=== PATIENT | female | born 1990 | race African-American/Black ===

== ENCOUNTER 2020-11-20 19:53 | Outpatient (CLI) | payer OTHER ==
[2020-11-20 21:19] LABS: Bacteria,Urine 2+ /HPF (Negative); Bilirubin,Urine NEG (Negative); Blood,Urine NEG (Negative); Color,Urine Yellow (Yellow); Mucus,Urine FEW /HPF; Protein,Urine <15 mg/dL mg/dL (Negative); Urobilinogen,Urine < 2.0 mg/dL (<2.0)
[2020-11-20 22:43] LABS: Hematocrit 33.9 % (30.3-42.9); Hemoglobin 11.7 gm/dl (10.1-14.3); Mean Corpuscular HGB Conc 35 % (30-34); Mean Corpuscular Volume 93 fl (79-97); Platelet Count 214 K/mm3 (140-440); Red Blood Count 3.65 M/mm3 (3.65-5.03); Red Cell Distribution Width 14.3 % (13.2-15.2)
[2020-11-20 23:02] LABS: Alanine Aminotransferase 13 units/L (7-56); Uric Acid 3.8 mg/dL (3.5-7.6)
[2020-11-20 23:27] VITALS: BP 134/87
--- NOTE | 2020-11-20 23:30 | Ultrasound Report ---
LIMITED OBSTETRIC ULTRASOUND WITH BIOPHYSICAL PROFILE HISTORY: Elevated blood-pressure. Clinical gestational age 39 week 4 day COMPARISON: None. TECHNIQUE: Limited OB ultrasound performed with biophysical profile. FINDINGS: Gestation: [place] intrauterine fetus. Placenta: anterior location and free of the internal cervical os. Presentation: Cephalic Amniotic Fluid Index: 10.3 cm ANATOMY: Detailed anatomic survey was not requested. Heart rate measures 154 beats per minute. BIOMETRY: Biparietal diameter: 9.5 cm corresponding to38 week 5 day Head circumference: 34.3 cmcorresponding to39 weeks 4 day Abdominal circumference: 34.2 cmcorresponding to38 week 1 day Femur length: 7.7 cmcorresponding to39 week 2 day Estimated weight: 3554 +/- 526 grams, which is at the 51 percentile. Estimated gestational age based on today's measurements: 39 weeks 0 days BIOPHYSICAL PROFILE: Movement: 2 Tone: 2 Breathin Amniotic Fluid: 2 Total: 8 out of 8 IMPRESSION 1. Single living intrauterine at approximately 39 weeks 0 days with no significant abnormal ity. Detailed anatomic survey was not performed. 2. Biophysical Profile 8 out of 8. 3. Normal amniotic fluid index. Signer Name: Noa Lindsey MD Signed: 11/20/2020 11:26 PM Workstation Name: [id number]
== END 2020-11-21 | disposition home or self-care (01) ==
LOC: TRG 19:53 → APU 20:03 → TRG 11-21
PROVIDERS: ATTEND Obstetrics & Gynecology
DX: O13.3 Gestational [pregnancy-induced] hypertension without significant proteinuria, third trimester (principal); Z3A.39 39 weeks gestation of pregnancy
CPT/HCPCS: 36415; 59025; 76816; 76819; 81001; 82565; 83615; 84450; 84460; 84550; 85027; 87086

== ENCOUNTER 2020-11-27 06:29 | Inpatient (IN) | payer OTHER ==
[2020-11-27] MEDS ORDERED: LACTATED RINGERS 2,000 ML ONE (07:32)
[2020-11-27] MEDS ORDERED: NalbUPHINE 10 MG/1 ML INJ IV PRN (08:31)
[2020-11-27] MEDS ORDERED: TERBUTALINE 1 MG/1 ML INJ SUB-Q PRN (08:31)
[2020-11-27] MEDS ORDERED: ePHEDrine SULFATE 50 MG/1 ML INJ IV PRN ×2 (08:31→10:38)
[2020-11-27] MEDS ORDERED: BUTORPHANOL 2 MG/1 ML INJ IV PRN ×2 (08:31)
[2020-11-27] MEDS ORDERED: fentaNYL 100 MCG/2 ML INJ IV PRN (08:31)
[2020-11-27] MEDS ORDERED: ACETAMINOPHEN 325 MG TAB PO PRN (08:31)
[2020-11-27] MEDS ORDERED: MINERAL OIL 30 ML ORAL LIQD PO PRN (08:31)
[2020-11-27] MEDS ORDERED: NALOXONE 0.4 MG/1 ML INJ IV PRN (08:31)
[2020-11-27] MEDS: LACTATED RINGERS 1,000 ML IV SCH ×2 (08:54→09:49)
[2020-11-27] MEDS ORDERED: MAGNESIUM SULFATE 4 GM/100 ML BAG IV ONE (08:54)
--- NOTE | 2020-11-27 08:57 | History and Physical Report ---
History of Present Illness Date of examination: 11/27/20 Chief complaint: painful contractions since 0300 this morning History of present illness: EDC Confirmation: 11/23/2020 Past History : 1 Term Births: 0 Premature Births: 0 Living Children: 0 Para: 0 Mult. Births: 0 Prev : 0 Aborta: 0 Elect. Ab: 0 Spont. Ab: 0 Ectopics: 0 Past Medical History: Reviewed history from 01/25/2020 and no changes required: Hypothyroidism Past Surgical History: Reviewed history from 01/25/2020 and no changes required: negative Past Medical History Anesthesia Complications: negative Anemia: negative Autoimmune Disorder: negative Bleeding Disorder: negative Blood Transfusions: negative Breast Disease: negative Diabetes: negative Heart Disease: negative Hypertension: negative Hepatitis/Liver Disease: negative Kidney Disease/UTI: negative Neurologic/Epilepsy/Migraines: negative Phlebitis/Varicosities: negative Psychiatric: negative Pulmonary Disease/Asthma: negative Thyroid Disease: positive, Hypothroidism Hospitalizations: negative Surgery (Non-skidder lever operator): negative Abnormal PAP: negative ERWIN Exposure: negative Infertility: negative Uterine Anomaly: negative Uterine Surgery (not C/S): negative Other Gynecologic Problems: negative Social Hx: Patient is Smoking History: Patient has never smoked. no e/t/d Infection History Hx of STD: none HIV Risk Eval: no Hepatitis B Risk Eval: low risk Personal hx. of genital herpes: no Partner hx. of genital herpes: no Rash, Viral, or Febrile illness since last LMP? no Varicella/Chicken Pox Status: Previous Disease TB Risk: no Genetic History Congenital Heart Defect: Mom: no Dad: no Brayden Disease: Mom: no Dad: no Thalassemia Mom: no Dad: no Neural Tube Defect Mom: no Dad: no Down's Syndrome Mom: no Dad: no Toi-Sachs Mom: no Dad: no Sickle Cell Disease/Trait Mom: no Dad: no Hemophilia Mom: no Dad: no Muscular Dystrophy Mom: no Dad: no Cystic Fibrosis Mom: no Dad: no Wainwright Chorea Mom: no Dad: no Mental Retardation Mom: no Dad: no Fragile X Mom: no Dad: no Other Genetic/Chromosomal Disorder Mom: no Dad: no Child w/other defect Mom: no Dad: no Enviromental Exposures Xray Exposure: no Medication, drug, or alcohol use since LMP: no Chemical/Other Exposure: no Exposure to Cat Liter: no Hx of Parvovirus (Fifth Disease): no Occupational Exposure to Children: none Active Medications (reviewed today): ZOFRAN ODT 8 MG ORAL TABLET DISINTEGRATING (ONDANSETRON) 1 po q12hrs prn LEVOTHYROXINE 222 MCG () Current Allergies (reviewed today): No known allergies Past History Past Medical History: thyroid disease Past Surgical History: 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 denies: smoking, alcohol abuse, prescription drug abuse, IV drug use - Obstetrical History Expected Date of Delivery: 11/23/20 Actual Gestation: 40 Week(s) 4 Day(s) : 1 Para: 0 Hx # Term Pregnancies: 0 Number of Pregnancies: 0 Spontaneous Abortions: 0 Induced : 0 Number of Living Children: 0 Medications and Allergies Allergies Allergy/AdvReac Type Severity Reaction Status Date / Time No Known Allergies Allergy Unverified 11/20/20 20:54 Home Medications Medication Instructions Recorded Confirmed Last Taken Type Levothyroxine 112 mcg PO QDAY 11/20/20 11/20/20 11/20/20 10:00 History Vitamin 1 tab PO QDAY 11/20/20 11/20/20 11/20/20 10:00 History Active Meds: Active Medications Acetaminophen (Acetaminophen 325 Mg Tab) 650 mg PO Q4H PRN PRN Reason: Pain, Mild (1-3) Butorphanol Tartrate (Butorphanol 2 Mg/1 Ml Inj) 1 mg IV Q2H PRN PRN Reason: Pain, Moderate(4-6) LABOR PAIN Butorphanol Tartrate (Butorphanol 2 Mg/1 Ml Inj) 2 mg IV Q2H PRN PRN Reason: Pain , Severe (7-10) Ephedrine Sulfate (Ephedrine Sulfate 50 Mg/1 Ml Inj) 10 mg IV Q2M PRN PRN Reason: Hypotension Fentanyl (Fentanyl 100 Mcg/2 Ml Inj) 100 mcg IV Q2H PRN PRN Reason: Pain,Severe (7-10) LABOR PAIN Oxytocin/Sodium Chloride (Pitocin/Ns 30 Unit/500ml) 30 units in 500 mls @ 2 mls/hr IV TITR COLLEEN; Protocol Lactated Ringer's (Lactated Ringers) 1,000 mls @ 125 mls/hr IV DIRECT COLLEEN Last Admin: 11/27/20 08:54 Dose: 999 mls/hr Documented by: Oxytocin/Sodium Chloride (Pitocin/Ns 30 Unit/500ml) 30 units in 500 mls @ 40 mls/hr IV TITR COLLEEN; Protocol Lidocaine (Lidocaine (2%) 20 Mg/1 Ml Vial 20 Ml Mdv) 20 ml INFILTRATI ONCE ONE Stop: 11/27/20 09:01 Mineral Oil (Mineral Oil 30 Ml Oral Liqd) 30 ml PO QHS PRN PRN Reason: Constipation Nalbuphine HCl (Nalbuphine 10 Mg/1 Ml Inj) 10 mg IV Q2H PRN PRN Reason: Pain, Moderate (4-6) Naloxone HCl (Naloxone 0.4 Mg/1 Ml Inj) 0.1 mg IV Q2MIN PRN PRN Reason: Res Rate </= 8 or 02 SAT < 92% Ondansetron HCl (Ondansetron 4 Mg/2 Ml Inj) 4 mg IV Q8H PRN PRN Reason: Nausea And Vomiting Terbutaline Sulfate (Terbutaline 1 Mg/1 Ml Inj) 0.25 mg SUB-Q ONCE PRN PRN Reason: Hyperstimulation/Hypertonicity Review of Systems All systems: negative - Vital Signs Vital signs: Vital Signs Pulse BP Pulse Ox 75 137/89 97 11/27/20 06:57 11/27/20 06:57 11/27/20 06:57 Temp Pulse Resp BP Pulse Ox 98.6 F 73 20 168/101 97 11/27/20 07:28 11/27/20 08:52 11/27/20 07:28 11/27/20 08:52 11/27/20 08:50 - Physical Exam Breasts: Cardiovascular: Regular rate, Normal S1, Normal S2 Abdomen: Positive: normal appearance, soft, normal bowel sounds. Negative: distention, tenderness Genitourinary (Female): Positive: normal external genitalia, normal perenium Vulva: both: normal Vagina: Positive: normal moisture Uterus: Positive: normal size, normal contour Adnexa: both: normal Anus/Rectum: Positive: normal perianal skin, heme negative. Negative: rectal mass, hemorrhoids Extremities: Deep Tendon Reflex Grade: Normal +2 - Obstetrical FHR: category 2 Uterine Contraction Monitor Mode: External Uterine Contraction Frequency (min): 8-9 Uterine Contraction Duration: 90 Uterine Contraction Pattern: Regular Uterine Tone Measurement Phase: Contraction Uterine Contraction Intensity: Mild Results Result Diagrams: 11/27/20 08:15 All other labs normal. Assessment and Plan 30 y/o admitted for labor, b/p noted to be elevated in severe range upon admission. Pre-e labs NL except for proteinuria. pt noted to have b/p 130/94 @ 39 weeks but then normal after. pt denies HART, visual changes or epigastric pain. dx pre-e, discussed w/ patient and . Epidural PRN, labor to be augmented with pitocin as needed. Dr. Cardenas updated. - Patient Problems (1) Pre-eclampsia Current Visit: Yes Status: Acute Qualifiers: Trimester: third trimester Qualified Code(s): O14.93 - Unspecified pre- eclampsia, third trimester Plan to address problem: Magnesium sulfate for neuro protection to continue 24hr post delivery mag levels q6hrs close monitoring of b/p and for s/s of worsening pre-e (2) 40 weeks gestation of Current Visit: Yes Status: Acute (3) Active labor at term Current Visit: Yes Status: Acute (4) Hypothyroidism Current Visit: Yes Status: Acute Qualifiers: Hypothyroidism type: acquired Qualified Code(s): E03.9 - Hypothyroidism, unspecified Plan to address problem: Continue synthroid
[2020-11-27] MEDS ORDERED: OXYTOCIN DRIP 30 UNITS/500 ML BAG IV SCH ×2 (09:00)
[2020-11-27] MEDS ORDERED: MAGNESIUM SULFATE 40GM/1000ML 40 GM/1,000 ML BAG IV SCH (09:00)
[2020-11-27] MEDS ORDERED: LIDOCAINE (2%) 20 MG/1 ML VIAL 20 ML MDV INFILTRATI ONE (09:00)
[2020-11-27] MEDS: ONDANSETRON 4 MG/2 ML INJ IV PRN ×2 (09:01→17:36)
[2020-11-27 09:27] LABS: Hematocrit 36.9 % (30.3-42.9); Hemoglobin 12.2 gm/dl (10.1-14.3); Mean Corpuscular HGB Conc 33 % (30-34); Mean Corpuscular Volume 93 fl (79-97); Platelet Count 256 K/mm3 (140-440); Red Blood Count 3.97 M/mm3 (3.65-5.03); Red Cell Distribution Width 14.6 % (13.2-15.2)
[2020-11-27 10:05] LABS: Bilirubin,Urine NEG (Negative); Blood,Urine LG (Negative); Color,Urine Amber (Yellow); Mucus,Urine 3+ /HPF
[2020-11-27] MEDS ORDERED: NALOXONE 2 MG/2 ML INJ IV PRN (10:38)
--- NOTE | 2020-11-27 10:38 | Anesthesia Consultation ---
Anesthesia Consult and Med Hx Date of service: 11/27/20 - Airway Anesthetic Teeth Evaluation: Good ROM Head & Neck: Adequate Mental/Hyoid Distance: Adequate Mallampati Class: Class II Intubation Access Assessment: Probably Good - Pulmonary Exam CTA: Yes - Cardiac Exam Cardiac Exam: RRR - Pre-Operative Health Status ASA Pre-Surgery Classification: ASA3 Proposed Anesthetic Plan: Epidural - Pulmonary Hx Asthma: No COPD: No Hx Pneumonia: No - Cardiovascular System Hx Hypertension: Yes (Pre-e) - Central Nervous System Hx Seizures: No Hx Psychiatric Problems: No - Endocrine Hx Renal Disease: No Hx End Stage Renal Disease: No Hx Hypothyroidism: Yes (medications since Mar) Hx Hyperthyroidism: No - Hematic Hx Anemia: No Hx Sickle Cell Disease: No - Other Systems Hx Alcohol Use: No
--- NOTE | 2020-11-27 10:51 | Progress Note ---
Labor Epidural - Labor Epidural Start Time: 10:42 Stop Time: 10:50 Performed by:: JESUS MELGAR Procedure: Patient is requesting epidural for labor pain. H&P, and labs reviewed. Procedure explained, questions answered, consent obtained. Patient in sitting position with blood pressure cuff and pulse ox on and working. Timeout performed immediately before start of procedure. Sterile chlorahexadine 0.5% prep/drape. 3 mL 1% lidocaine skin wheal at L[3]-L[4]. 18-gauge Tuohy epidural needle advanced to [id number] with saline at [7] cm. Epidural catheter advanced to [12] cm, negative aspiration for blood and csf, negative test dose 3 ml 1.5% lidocaine with epinephrine. Epidural dexmedetomidine [30] mcg administered. Sterile steri-strips and tegaderm applied, followed by tape reinforcement. Patient tolerated procedure well. Jesus SAENZ
[2020-11-27] MEDS ORDERED: fentaNYL-BUPIV 2 MCG/ML-0.125% 200 MCG/100 ML BAG EPIDURAL SCH (11:00)
--- NOTE | 2020-11-27 11:13 | Progress Note ---
Assessment and Plan pt comfortable s/p epidural, SVE with good change. AROM - clear fluid. will augment with pitocin. efw by palpation approx 7.5lbs, pelvis feels adequate for size. - Patient Problems (1) Pre-eclampsia Current Visit: Yes Status: Acute Qualifiers: Trimester: third trimester Qualified Code(s): O14.93 - Unspecified pre- eclampsia, third trimester (2) 40 weeks gestation of Current Visit: Yes Status: Acute (3) Active labor at term Current Visit: Yes Status: Acute (4) Hypothyroidism Current Visit: Yes Status: Acute Qualifiers: Hypothyroidism type: acquired Qualified Code(s): E03.9 - Hypothyroidism, unspecified Subjective - Subjective Date of service: 11/27/20 Principal diagnosis: IUP @ 40+4, Laboring, pre-e Interval history: EDC Confirmation: 11/23/2020 Past History : 1 Term Births: 0 Premature Births: 0 Living Children: 0 Para: 0 Mult. Births: 0 Prev : 0 Aborta: 0 Elect. Ab: 0 Spont. Ab: 0 Ectopics: 0 Past Medical History: Reviewed history from 01/25/2020 and no changes required: Hypothyroidism Past Surgical History: Reviewed history from 01/25/2020 and no changes required: negative Past Medical History Anesthesia Complications: negative Anemia: negative Autoimmune Disorder: negative Bleeding Disorder: negative Blood Transfusions: negative Breast Disease: negative Diabetes: negative Heart Disease: negative Hypertension: negative Hepatitis/Liver Disease: negative Kidney Disease/UTI: negative Neurologic/Epilepsy/Migraines: negative Phlebitis/Varicosities: negative Psychiatric: negative Pulmonary Disease/Asthma: negative Thyroid Disease: positive, Hypothroidism Hospitalizations: negative Surgery (Non-gear roller): negative Abnormal PAP: negative ERWIN Exposure: negative Infertility: negative Uterine Anomaly: negative Uterine Surgery (not C/S): negative Other Gynecologic Problems: negative Social Hx: Patient is Smoking History: Patient has never smoked. no e/t/d Infection History Hx of STD: none HIV Risk Eval: no Hepatitis B Risk Eval: low risk Personal hx. of genital herpes: no Partner hx. of genital herpes: no Rash, Viral, or Febrile illness since last LMP? no Varicella/Chicken Pox Status: Previous Disease TB Risk: no Genetic History Congenital Heart Defect: Mom: no Dad: no Brayden Disease: Mom: no Dad: no Thalassemia Mom: no Dad: no Neural Tube Defect Mom: no Dad: no Down's Syndrome Mom: no Dad: no Toi-Sachs Mom: no Dad: no Sickle Cell Disease/Trait Mom: no Dad: no Hemophilia Mom: no Dad: no Muscular Dystrophy Mom: no Dad: no Cystic Fibrosis Mom: no Dad: no Diogenes Chorea Mom: no Dad: no Mental Retardation Mom: no Dad: no Fragile X Mom: no Dad: no Other Genetic/Chromosomal Disorder Mom: no Dad: no Child w/other defect Mom: no Dad: no Enviromental Exposures Xray Exposure: no Medication, drug, or alcohol use since LMP: no Chemical/Other Exposure: no Exposure to Cat Liter: no Hx of Parvovirus (Fifth Disease): no Occupational Exposure to Children: none Active Medications (reviewed today): ZOFRAN ODT 8 MG ORAL TABLET DISINTEGRATING (ONDANSETRON) 1 po q12hrs prn LEVOTHYROXINE 222 MCG () Current Allergies (reviewed today): No known allergies Patient reports: no new complaints (comfortable w/ epidural) Objective - Vital Signs Vital Signs: Vital Signs - 12hr 11/27/20 11/27/20 11/27/20 06:57 07:02 07:07 Temperature Pulse Rate 75 70 71 Respiratory Rate Blood Pressure 137/89 O2 Sat by Pulse 97 97 97 Oximetry 11/27/20 11/27/20 11/27/20 07:12 07:20 07:25 Temperature Pulse Rate 79 75 75 Respiratory Rate Blood Pressure O2 Sat by Pulse 98 98 97 Oximetry 11/27/20 11/27/20 11/27/20 07:28 07:56 07:59 Temperature 98.6 F Pulse Rate 79 78 Respiratory 20 Rate Blood Pressure 187/106 O2 Sat by Pulse 95 Oximetry 11/27/20 11/27/20 11/27/20 08:01 08:02 08:06 Temperature Pulse Rate 78 81 74 Respiratory Rate Blood Pressure O2 Sat by Pulse 96 94 96 Oximetry 11/27/20 11/27/20 11/27/20 08:10 08:11 08:15 Temperature 99.8 F H Pulse Rate 75 71 Respiratory Rate Blood Pressure 151/95 O2 Sat by Pulse 96 Oximetry 11/27/20 11/27/20 11/27/20 08:16 08:21 08:23 Temperature Pulse Rate 76 71 75 Respiratory Rate Blood Pressure O2 Sat by Pulse 96 95 94 Oximetry 11/27/20 11/27/20 11/27/20 08:26 08:31 08:36 Temperature Pulse Rate 78 74 70 Respiratory Rate Blood Pressure 161/95 O2 Sat by Pulse 98 95 97 Oximetry 11/27/20 11/27/20 11/27/20 08:39 08:50 08:52 Temperature Pulse Rate 76 76 73 Respiratory Rate Blood Pressure 168/101 O2 Sat by Pulse 94 97 Oximetry 11/27/20 11/27/20 11/27/20 08:55 09:00 09:01 Temperature Pulse Rate 73 86 86 Respiratory Rate Blood Pressure 187/100 O2 Sat by Pulse 96 97 Oximetry 11/27/20 11/27/20 11/27/20 09:05 09:10 09:11 Temperature Pulse Rate 68 68 66 Respiratory Rate Blood Pressure O2 Sat by Pulse 97 95 94 Oximetry 11/27/20 11/27/20 11/27/20 09:15 09:17 09:20 Temperature Pulse Rate 69 71 71 Respiratory Rate Blood Pressure 152/87 O2 Sat by Pulse 95 93 96 Oximetry 11/27/20 11/27/20 11/27/20 09:25 09:29 09:30 Temperature Pulse Rate 87 69 68 Respiratory Rate Blood Pressure 145/92 O2 Sat by Pulse 99 96 Oximetry 11/27/20 11/27/20 11/27/20 09:34 09:35 09:40 Temperature Pulse Rate 64 89 66 Respiratory Rate Blood Pressure O2 Sat by Pulse 94 95 97 Oximetry 11/27/20 11/27/20 11/27/20 09:45 09:46 09:50 Temperature Pulse Rate 87 78 68 Respiratory Rate Blood Pressure 184/109 O2 Sat by Pulse 99 97 Oximetry 11/27/20 11/27/20 11/27/20 09:52 09:55 09:57 Temperature Pulse Rate 66 70 71 Respiratory Rate Blood Pressure 137/79 133/81 O2 Sat by Pulse 93 95 Oximetry 11/27/20 11/27/20 11/27/20 09:58 10:00 10:04 Temperature Pulse Rate 76 74 67 Respiratory Rate Blood Pressure 141/83 O2 Sat by Pulse 92 96 Oximetry 11/27/20 11/27/20 11/27/20 10:05 10:07 10:09 Temperature Pulse Rate 73 81 73 Respiratory Rate Blood Pressure 153/84 149/82 O2 Sat by Pulse 97 94 Oximetry 11/27/20 11/27/20 11/27/20 10:10 10:12 10:15 Temperature Pulse Rate 72 74 90 Respiratory Rate Blood Pressure 141/81 O2 Sat by Pulse 94 95 Oximetry 11/27/20 11/27/20 11/27/20 10:19 10:20 10:22 Temperature Pulse Rate 72 76 78 Respiratory Rate Blood Pressure 144/90 143/88 O2 Sat by Pulse 95 Oximetry 11/27/20 11/27/20 11/27/20 10:25 10:30 10:35 Temperature Pulse Rate 83 81 79 Respiratory Rate Blood Pressure O2 Sat by Pulse 98 96 95 Oximetry 11/27/20 11/27/20 11/27/20 10:40 10:44 10:45 Temperature Pulse Rate 84 82 77 Respiratory Rate Blood Pressure 140/86 O2 Sat by Pulse 97 98 Oximetry 11/27/20 11/27/20 11/27/20 10:46 10:48 10:50 Temperature Pulse Rate 75 76 75 Respiratory Rate Blood Pressure 136/85 148/92 137/83 O2 Sat by Pulse 98 Oximetry 11/27/20 11/27/20 11/27/20 10:52 10:54 10:55 Temperature Pulse Rate 90 82 94 H Respiratory Rate Blood Pressure 127/79 131/79 O2 Sat by Pulse 97 Oximetry 11/27/20 11/27/20 11/27/20 10:56 10:58 11:00 Temperature Pulse Rate 86 83 78 Respiratory Rate Blood Pressure 137/79 128/75 123/74 O2 Sat by Pulse 97 Oximetry 11/27/20 11/27/20 11/27/20 11:02 11:04 11:05 Temperature Pulse Rate 83 80 81 Respiratory Rate Blood Pressure 117/69 115/68 O2 Sat by Pulse 97 Oximetry 11/27/20 11/27/20 11:06 11:08 Temperature Pulse Rate 81 82 Respiratory Rate Blood Pressure 120/65 120/72 O2 Sat by Pulse Oximetry - Exam Cardiovascular: Regular rate Lungs: Normal air movement Abdomen: Present: normal appearance, soft Vulva: both: normal Uterus: Present: normal, fundal height above umbilicus FHR: category 1 Uterine Contraction Monitor Mode: External Cervical Dilatation: 7.5 (AROM - clear) Cervical Effacement Percentage: 80 station: -1 Uterine Contraction Frequency (min): 5-7 Uterine Contraction Duration: 90 Uterine Contraction Pattern: Regular Uterine Tone Measurement Phase: Contraction Uterine Contraction Intensity: Moderate Extremities: normal Deep Tendon Reflex Grade: Normal +2 - Labs Labs: Abnormal Labs 11/27/20 11/27/20 11/27/20 08:15 08:15 09:13 WBC 11.9 H Magnesium 1.60 L Urine WBC (Auto) 26.0 H U Epithel Cells (Auto) 41.0 H Laboratory Results - last 24 hr 11/27/20 11/27/20 11/27/20 08:15 08:15 08:15 WBC 11.9 H RBC 3.97 Hgb 12.2 Hct 36.9 MCV 93 MCH 31 MCHC 33 RDW 14.6 Plt Count 256 Magnesium Urine Color Urine Turbidity Urine pH Ur Specific Pilot Urine Protein Urine Glucose (UA) Urine Ketones Urine Blood Urine Nitrite Urine Bilirubin Urine Urobilinogen Ur Leukocyte Esterase Urine WBC (Auto) Urine RBC (Auto) U Epithel Cells (Auto) Urine Mucus Syphilis IgG Antibody Nonreactive Blood Type B NEGATIVE Antibody Screen Negative 11/27/20 11/27/20 08:15 09:13 WBC RBC Hgb Hct MCV MCH MCHC RDW Plt Count Magnesium 1.60 L Urine Color Afbi Urine Turbidity Cloudy Urine pH 6.0 Ur Specific Pilot 1.026 Urine Protein 100 mg/dl Urine Glucose (UA) Neg Urine Ketones Neg Urine Blood Lg Urine Nitrite Neg Urine Bilirubin Neg Urine Urobilinogen 2.0 Ur Leukocyte Esterase Sm Urine WBC (Auto) 26.0 H Urine RBC (Auto) 2.0 U Epithel Cells (Auto) 41.0 H Urine Mucus 3+ Syphilis IgG Antibody Blood Type Antibody Screen
[2020-11-27 12:42] LABS: Hematocrit 36.3 % (30.3-42.9); Hemoglobin 12.2 gm/dl (10.1-14.3); Mean Corpuscular HGB Conc 34 % (30-34); Mean Corpuscular Volume 94 fl (79-97); Platelet Count 229 K/mm3 (140-440); Red Blood Count 3.88 M/mm3 (3.65-5.03); Red Cell Distribution Width 14.3 % (13.2-15.2)
[2020-11-27 13:04] LABS: Alanine Aminotransferase 13 units/L (7-56); Uric Acid 3.8 mg/dL (3.5-7.6)
--- NOTE | 2020-11-27 15:42 | Procedure Note ---
OB Delivery Note - Delivery Date of Delivery: 11/27/20 ( female) [employer] Farmer: SADAF GUERRERO Estimated blood loss: 300cc - Vaginal Delivery presentation: vertex Delivery position: OA (RAJENDRA) Intrapartum events: meconium, preeclampsia Delivery induction: none Delivery augmentation: rupture of membranes, pitocin Delivery monitor: external FHT, external uterine Route of delivery: Delivery placenta: spontaneous Delivery cord: 3 umbilical vessels Episiotomy: none Delivery laceration: 2nd degree Delivery repair: vicryl Anesthesia: epidural Delivery comments: Female infant born over intact perineum, with strong cry placed on maternal abdomen for skin to skin. 3 vessel cord clamped and cut. cord blood collected. placenta delivered intact and complete. 2nd degree laceration repaired in the usual fashion. EBL 300. apgars 8/9, wt 7#14oz. mother and baby in stable condition. all counts correct. Will continue magnesium x24hrs on labor and delivery. - Infant A at 1 minute: 8 at 5 minutes: 9 Infant Gender: Female (7#14)
[2020-11-27] MEDS ORDERED: hydrALAZINE 20 MG/1 ML INJ IV ONE (17:40)
--- NOTE | 2020-11-28 06:54 | Progress Note ---
Assessment and Plan - Patient Problems (1) (normal spontaneous vaginal delivery) Onset Date: ~11/27/20 Current Visit: Yes Status: Acute Plan to address problem: Pt in good spirits. VSS FF @ umb Lochia small Perineum intact Hendrix to BSB draining clear yellow urine. H&H pending. Pt w/o complaints of anemia. Stable s/p vag delivery; on 24hr MGSO4 for PreE P: continue MGSO4 until 1500 then will transfer to [facility] All questions addressed (2) Pre-eclampsia Onset Date: ~11/28/20 Current Visit: Yes Status: Acute Qualifiers: Trimester: third trimester Qualified Code(s): O14.93 - Unspecified pre- eclampsia, third trimester Plan to address problem: VSS BPs 108-106/70. Pt denies HART, blurred vision, chest pain. Will continue MGSO4 X 24hr post delivery 1500 today then transfer to [facility] Subjective - Subjective Date of service: 11/28/20 (pt aware she will go to [facility] after 1500 when MGSO4 is d/c) Principal diagnosis: Day # 1 s/p ; PreE on MGSO4 Patient reports: appetite normal, pain well controlled [place]: doing well Objective - Vital Signs Latest vital signs: Vital Signs Temp Pulse Resp BP BP Pulse Ox 11/28/20 06:46 82 97 11/28/20 06:41 74 95 11/28/20 06:39 75 107/57 11/28/20 06:37 47 L 94 11/28/20 06:36 73 95 11/28/20 06:31 74 96 11/28/20 06:26 76 95 11/28/20 06:21 79 97 11/28/20 06:16 79 97 11/28/20 06:11 84 96 11/28/20 06:09 75 96/51 94 11/28/20 06:06 78 96 11/28/20 06:01 77 97 11/28/20 05:56 75 96 11/28/20 05:51 81 97 11/28/20 05:46 85 97 11/28/20 05:41 76 96 11/28/20 05:39 78 107/60 92 11/28/20 05:36 74 95 11/28/20 05:31 86 95 11/28/20 05:26 82 95 11/28/20 05:21 76 95 11/28/20 05:16 85 96 11/28/20 05:11 84 98 11/28/20 05:09 80 108/62 92 11/28/20 05:06 79 97 11/28/20 05:01 82 97 11/28/20 04:56 81 95 11/28/20 04:51 78 96 11/28/20 04:46 82 96 11/28/20 04:41 83 97 11/28/20 04:39 82 106/59 93 11/28/20 04:36 86 96 11/28/20 04:31 77 97 11/28/20 04:26 82 97 11/28/20 04:21 74 94 11/28/20 04:16 75 97 11/28/20 04:11 76 93 11/28/20 04:09 76 107/56 11/28/20 04:06 80 94 11/28/20 04:01 78 94 11/28/20 04:00 99.1 F 76 18 107/56 94 11/28/20 03:56 81 97 11/28/20 03:51 85 96 11/28/20 03:46 85 96 11/28/20 03:41 92 H 96 11/28/20 03:39 81 111/60 93 11/28/20 03:36 80 96 11/28/20 03:31 82 97 11/28/20 03:26 85 96 11/28/20 03:21 80 95 11/28/20 03:16 81 95 11/28/20 03:11 82 95 11/28/20 03:09 82 111/67 92 11/28/20 03:06 82 96 11/28/20 03:01 87 95 11/28/20 02:56 67 97 11/28/20 02:51 87 96 11/28/20 02:46 89 96 11/28/20 02:41 85 96 11/28/20 02:39 82 117/69 93 11/28/20 02:36 87 97 11/28/20 02:31 88 97 11/28/20 02:26 87 96 11/28/20 02:21 81 95 11/28/20 02:16 83 95 11/28/20 02:11 85 96 11/28/20 02:09 81 109/63 91 11/28/20 02:06 81 95 0521 02:01 79 95 11/28/20 01:56 84 96 11/28/20 01:51 80 96 11/28/20 01:46 78 97 11/28/20 01:41 80 95 11/28/20 01:39 80 104/60 93 11/28/20 01:36 83 97 11/28/20 01:31 77 95 11/28/20 01:26 77 94 11/28/20 01:21 80 94 11/28/20 01:16 77 95 11/28/20 01:14 83 94 11/28/20 01:11 81 95 11/28/20 01:09 74 104/56 11/28/20 01:06 73 94 11/28/20 01:01 70 92 11/28/20 00:56 69 92 11/28/20 00:51 69 92 11/28/20 00:46 69 92 11/28/20 00:41 67 92 11/28/20 00:39 75 105/51 11/28/20 00:36 70 93 11/28/20 00:31 69 93 11/28/20 00:30 97.6 F 75 18 105/51 92 11/28/20 00:26 69 93 11/28/20 00:23 70 94 11/28/20 00:21 76 97 11/28/20 00:16 77 95 11/28/20 00:15 83 94 11/28/20 00:11 78 95 11/28/20 00:10 71 94 11/28/20 00:09 76 105/57 11/28/20 00:06 74 96 11/28/20 00:01 74 95 11/27/20 23:59 71 94 11/27/20 23:56 81 95 11/27/20 23:51 69 95 11/27/20 23:50 81 94 11/27/20 23:46 76 96 11/27/20 23:41 79 97 11/27/20 23:39 78 115/64 11/27/20 23:36 76 94 11/27/20 23:31 75 95 11/27/20 23:26 69 96 05 23:21 72 93 11/27/20 23:16 79 97 11/27/20 23:11 77 96 11/27/20 23:09 75 109/58 05/21 23:08 84 94 11/27/20 23:06 80 96 11/27/20 23:02 77 94 11/27/20 23:01 78 94 11/27/20 22:56 75 94 11/27/20 22:51 85 96 11/27/20 22:50 78 94 11/27/20 22:46 75 94 11/27/20 22:45 74 94 11/27/20 22:41 79 94 11/27/20 22:39 79 115/62 94 11/27/20 22:36 78 94 11/27/20 22:31 74 93 11/27/20 22:26 75 94 11/27/20 22:24 79 93 11/27/20 22:21 75 95 11/27/20 22:19 76 94 11/27/20 22:16 76 97 11/27/20 22:11 76 95 11/27/20 22:09 74 117/64 94 11/27/20 22:06 72 96 11/27/20 22:01 76 95 11/27/20 21:56 81 95 11/27/20 21:55 81 124/70 11/27/20 21:52 82 93 11/27/20 21:51 77 95 11/27/20 21:46 77 95 11/27/20 21:44 78 94 11/27/20 21:41 82 95 11/27/20 21:39 81 124/70 92 11/27/20 21:36 78 96 11/27/20 21:34 79 94 11/27/20 21:31 84 97 11/27/20 21:26 77 95 11/27/20 21:21 79 96 11/27/20 21:18 78 94 11/27/20 21:16 77 96 11/27/20 21:11 84 96 11/27/20 21:09 80 115/65 92 11/27/20 21:06 83 96 11/27/20 21:01 86 97 11/27/20 20:56 81 96 11/27/20 20:53 81 94 11/27/20 20:51 80 96 11/27/20 20:46 86 96 11/27/20 20:40 84 97 11/27/20 20:39 87 117/72 11/27/20 20:36 82 96 11/27/20 20:31 85 97 11/27/20 20:25 85 96 11/27/20 20:23 75 94 11/27/20 20:20 87 96 11/27/20 20:17 78 94 11/27/20 20:15 80 96 11/27/20 20:10 80 97 11/27/20 20:09 80 115/62 11/27/20 20:05 80 96 11/27/20 20:00 97.4 F L 86 18 96 11/27/20 19:55 82 96 11/27/20 19:50 91 H 96 11/27/20 19:45 92 H 95 11/27/20 19:40 95 H 96 11/27/20 19:39 85 127/65 90 11/27/20 19:35 84 95 11/27/20 19:30 90 96 11/27/20 19:25 95 H 96 11/27/20 19:20 88 96 11/27/20 19:19 85 94 11/27/20 19:15 88 96 11/27/20 19:10 87 96 11/27/20 19:09 90 136/70 94 11/27/20 19:05 84 95 11/27/20 19:01 96 H 94 11/27/20 19:00 92 H 96 11/27/20 18:55 90 97 11/27/20 18:50 88 95 11/27/20 18:45 93 H 96 11/27/20 18:42 98.3 F 11/27/20 18:40 92 H 96 11/27/20 18:39 88 133/74 11/27/20 18:35 98 H 97 11/27/20 18:30 86 97 11/27/20 18:25 83 96 11/27/20 18:21 95 H 94 11/27/20 18:20 91 H 96 11/27/20 18:15 90 97 11/27/20 18:10 101 H 98 11/27/20 18:07 90 142/71 11/27/20 18:05 90 97 11/27/20 18:02 90 138/70 11/27/20 18:00 92 H 97 11/27/20 17:57 89 145/75 11/27/20 17:55 90 97 11/27/20 17:52 82 142/79 11/27/20 17:50 81 96 11/27/20 17:47 87 93 11/27/20 17:46 86 164/94 11/27/20 17:45 88 97 11/27/20 17:40 86 96 11/27/20 17:36 98 H 164/94 92 11/27/20 17:35 100 H 96 11/27/20 17:34 72 190/101 11/27/20 17:30 83 96 11/27/20 17:25 75 175/71 95 11/27/20 17:20 79 98 11/27/20 17:15 82 99 11/27/20 17:10 76 97 11/27/20 17:05 79 97 11/27/20 17:02 79 93 11/27/20 17:00 76 97 11/27/20 16:55 79 96 11/27/20 16:50 80 98 11/27/20 16:45 79 97 11/27/20 16:40 77 97 11/27/20 16:35 75 134/80 97 11/27/20 16:30 76 97 11/27/20 16:25 71 98 11/27/20 16:20 84 97 11/27/20 16:15 84 97 11/27/20 16:10 81 97 11/27/20 16:05 84 130/67 97 11/27/20 16:00 81 96 11/27/20 15:55 82 97 11/27/20 15:50 86 123/70 96 11/27/20 15:45 90 96 11/27/20 15:40 97 H 98 11/27/20 15:35 90 135/84 97 11/27/20 15:30 91 H 97 11/27/20 15:25 93 H 97 11/27/20 15:22 95 H 134/83 11/27/20 15:20 89 127/73 96 11/27/20 15:15 94 H 98 11/27/20 15:10 77 97 11/27/20 15:05 80 132/73 96 11/27/20 15:00 83 96 11/27/20 14:55 89 97 11/27/20 14:53 71 134/66 11/27/20 14:52 98 H 93 11/27/20 14:50 95 H 97 11/27/20 14:45 105 H 96 11/27/20 14:40 94 H 97 11/27/20 14:35 79 97 11/27/20 14:30 84 97 11/27/20 14:28 98.1 F 76 16 124/72 96 11/27/20 14:26 83 94 11/27/20 14:25 69 95 11/27/20 14:20 73 96 11/27/20 14:16 75 124/72 11/27/20 14:15 71 96 11/27/20 14:10 74 97 11/27/20 14:05 74 97 11/27/20 14:00 72 96 11/27/20 13:55 72 95 11/27/20 13:50 76 96 11/27/20 13:46 77 121/69 11/27/20 13:45 71 96 11/27/20 13:40 83 96 11/27/20 13:35 76 96 11/27/20 13:30 84 96 11/27/20 13:25 76 97 11/27/20 13:20 73 96 11/27/20 13:17 82 128/77 93 11/27/20 13:15 74 92 11/27/20 13:10 74 93 11/27/20 13:05 75 92 11/27/20 13:00 72 93 11/27/20 12:55 71 94 11/27/20 12:50 73 94 11/27/20 12:46 71 111/66 11/27/20 12:45 75 93 11/27/20 12:40 74 94 11/27/20 12:35 71 94 11/27/20 12:30 73 94 11/27/20 12:25 68 94 11/27/20 12:24 70 93 11/27/20 12:20 82 95 11/27/20 12:18 72 94 11/27/20 12:17 75 117/70 11/27/20 12:15 75 97 11/27/20 12:10 82 94 11/27/20 12:05 74 95 11/27/20 12:00 73 95 11/27/20 11:59 78 94 11/27/20 11:55 81 96 11/27/20 11:54 80 122/73 11/27/20 11:53 76 94 11/27/20 11:50 78 96 11/27/20 11:46 77 93 11/27/20 11:45 81 95 11/27/20 11:40 77 95 11/27/20 11:39 74 94 11/27/20 11:35 75 94 11/27/20 11:34 77 93 11/27/20 11:30 82 94 11/27/20 11:26 79 93 11/27/20 11:25 78 95 11/27/20 11:21 76 94 11/27/20 11:20 80 95 11/27/20 11:16 74 112/62 93 11/27/20 11:15 76 95 11/27/20 11:14 78 110/63 11/27/20 11:12 86 114/63 11/27/20 11:10 79 113/63 96 11/27/20 11:08 82 120/72 11/27/20 11:06 81 120/65 11/27/20 11:05 81 97 11/27/20 11:04 80 115/68 11/27/20 11:02 83 117/69 11/27/20 11:00 78 123/74 97 11/27/20 10:58 83 128/75 11/27/20 10:56 86 137/79 11/27/20 10:55 94 H 97 11/27/20 10:54 82 131/79 11/27/20 10:52 90 127/79 11/27/20 10:50 75 137/83 98 11/27/20 10:48 76 148/92 11/27/20 10:46 75 136/85 11/27/20 10:45 77 98 11/27/20 10:44 82 140/86 11/27/20 10:40 84 97 11/27/20 10:35 79 95 11/27/20 10:30 81 96 11/27/20 10:25 83 98 11/27/20 10:22 78 143/88 11/27/20 10:20 76 95 11/27/20 10:19 72 144/90 11/27/20 10:15 90 95 11/27/20 10:12 74 141/81 11/27/20 10:10 72 94 11/27/20 10:09 73 149/82 11/27/20 10:07 81 153/84 94 11/27/20 10:05 73 97 05/09/21 10:04 67 141/83 0509/21 10:00 74 96 11/27/20 09:58 76 92 05 09:57 71 133/81 05 09:55 70 95 11/27/20 09:52 66 137/79 93 11/27/20 09:50 68 97 11/27/20 09:46 78 184/109 11/27/20 09:45 87 99 11/27/20 09:40 66 97 11/27/20 09:35 89 95 11/27/20 09:34 64 94 11/27/20 09:30 68 96 11/27/20 09:29 69 145/92 11/27/20 09:25 87 99 11/27/20 09:20 71 96 11/27/20 09:17 71 152/87 93 11/27/20 09:15 69 95 11/27/20 09:11 66 94 11/27/20 09:10 68 95 11/27/20 09:05 68 97 11/27/20 09:01 86 187/100 11/27/20 09:00 86 97 11/27/20 08:55 73 96 11/27/20 08:52 73 168/101 11/27/20 08:50 76 97 11/27/20 08:39 76 94 11/27/20 08:36 70 97 11/27/20 08:31 74 161/95 95 11/27/20 08:26 78 98 11/27/20 08:23 75 94 11/27/20 08:21 71 95 11/27/20 08:16 76 96 11/27/20 08:15 71 151/95 11/27/20 08:11 75 96 11/27/20 08:10 99.8 F H 11/27/20 08:06 74 96 11/27/20 08:02 81 94 11/27/20 08:01 78 96 05 07:59 78 187/106 11/27/20 07:56 79 95 11/27/20 07:28 98.6 F 20 11/27/20 07:25 75 97 11/27/20 07:20 75 98 11/27/20 07:12 79 98 11/27/20 07:07 71 97 11/27/20 07:02 70 97 11/27/20 06:57 75 137/89 97 Intake and Output 11/27/20 11/27/20 11/28/20 14:59 22:59 06:59 Intake Total 1419.050 Output Total 968 530 5129 Balance 919.050 -850 -1650 Intake: IV 1419.050 Lactated Ringers 1,000 ml 915.75 @ 125 mls/hr IV DIRECT COLLEEN Rx#:[id number] Left Proximal Port Hand 500 PITOCin/NS 30 UNIT/500ML 3.300 30 units In 500 ml @ 2 mls/hr IV TITR COLLEEN Rx#: [id number] Output: Urine 651 422 4053 Indwelling Catheter 574 201 4678 Uretheral (Hendrix) 50 Other: Total, Output Amount 100 200 200 Weight 223 lb Estimated Blood Loss 300 Patient Weight 11/28/20 06:59 Weight 223 lb - Exam Breasts: Present: normal Cardiovascular: Present: Regular rate Lungs: Present: Clear to auscultation Abdomen: Present: normal appearance, soft, normal bowel sounds Uterus: Present: normal, fundal height at umbilicus Extremities: Present: normal Deep Tendon Reflex Grade: Normal +2 Incision: Present: normal - Labs Labs: Abnormal lab results 11/27/20 11/27/20 11/27/20 Range/Units 08:15 08:15 09:13 WBC 11.9 H (4.5-11.0) K/mm3 Creatinine (0.6-1.2) mg/dL Magnesium 1.60 L (1.7-2.3) mg/dL Urine WBC (Auto) 26.0 H (0.0-6.0) /HPF U Epithel Cells (Auto) 41.0 H (0-13.0) /HPF 11/27/20 11/27/20 11/27/20 Range/Units 11:42 11:42 18:12 WBC 11.8 H (4.5-11.0) K/mm3 Creatinine 0.3 L (0.6-1.2) mg/dL Magnesium 3.70 H (1.7-2.3) mg/dL Urine WBC (Auto) (0.0-6.0) /HPF U Epithel Cells (Auto) (0-13.0) /HPF 11/28/20 Range/Units 03:24 WBC (4.5-11.0) K/mm3 Creatinine (0.6-1.2) mg/dL Magnesium 4.20 H (1.7-2.3) mg/dL Urine WBC (Auto) (0.0-6.0) /HPF U Epithel Cells (Auto) (0-13.0) /HPF
--- NOTE | 2020-11-28 14:57 | Event Note ---
Date: 11/28/20 (D/C MGSO4) Transfer pt to M/B in 1 hour. Continue pathway as noted
--- NOTE | 2020-11-28 15:03 | Post Anesthesia Evaluation ---
- Post Anesthesia Evaluation Patient Participated: Yes Airway Patent: Yes Stable Respiratory Function: Yes Nausea/Vomiting: No Temp > 96.8F: Yes Pain Manageable: Yes Adequeate Hydration: Yes Anesthesia Complications: No Block Receding Appropriately: Yes
[2020-11-28] MEDS ORDERED: LANOLIN/ZINC/DIMETHICONE (LANSINOH) 7 GM TP PRN ×2 (16:41)
[2020-11-28] MEDS ORDERED: WITCH HAZEL/ GLYCERIN PAD TP PRN (16:41)
[2020-11-28] MEDS ORDERED: PROMETHAZINE 25 MG TAB PO PRN (16:41)
[2020-11-28] MEDS ORDERED: BENZOCAINE/MENTHOL 20/0.5% TOP SPRAY 56 GM TP PRN (16:41)
[2020-11-28] MEDS ORDERED: MAGNESIUM HYDROXIDE (MOM) ORAL LIQD UDC PO PRN (16:41)
[2020-11-28] MEDS ORDERED: diphenhydrAMINE 25 MG CAP PO PRN (16:41)
[2020-11-28] MEDS ORDERED: PRENATAL VIT27-FE FUMARATE-FOLIC ACID VIT TAB PO SCH (16:41)
[2020-11-28] MEDS ORDERED: IBUPROFEN 600 MG TAB PO SCH (16:41)
[2020-11-28 18:54] LABS: Hematocrit 27.8 % (30.3-42.9); Hemoglobin 9.5 gm/dl (10.1-14.3)
[2020-11-28] MEDS: IBUPROFEN 800 MG TAB PO SCH (23:40)
[2020-11-29] MEDS: IBUPROFEN 800 MG TAB PO SCH (05:56)
[2020-11-29] MEDS ORDERED: LEVOTHYROXINE 125 MCG TAB PO SCH (06:00)
--- NOTE | 2020-11-29 08:25 | Discharge Summary ---
Providers - Providers Date of Admission: 11/27/20 08:31 Date of discharge: 11/29/20 (desires d/c home today) Attending physician: JOSÉ MIGUEL TOTH 11/28/20 16:41 Consult to [employer] [place] [CONS] Routine Reason For Exam: assistance with , SNS Primary care physician: JOSÉ MIGUEL TOTH Hospitalization Reason for admission: Labor Condition: Good Pertinent studies: post delivery H&H 9.5/27.8 Procedures: Hospital course: and course complicated by elevated blood pressure/pre-e Disposition: DC-01 TO HOME OR SELFCARE Final Discharge Diagnosis (Prints w/discharge instructions): w/ pre-e Time spent for discharge: 25 - Discharge Diagnoses (1) Pre-eclampsia Status: Acute Qualifiers: Trimester: third trimester Qualified Code(s): O14.93 - Unspecified pre- eclampsia, third trimester (2) Active labor at term Status: Acute (3) Hypothyroidism Status: Acute Qualifiers: Hypothyroidism type: acquired Qualified Code(s): E03.9 - Hypothyroidism, unspecified (4) (normal spontaneous vaginal delivery) Status: Acute Core Measure Documentation - Palliative Care Palliative Care/ Comfort Measures: Not Applicable - Core Measures Any of the following diagnoses?: none Exam - Constitutional Vitals: Temp Pulse Resp BP Pulse Ox 98.4 F 68 18 115/70 98 11/29/20 04:15 11/29/20 04:15 11/29/20 04:15 11/29/20 04:15 11/29/20 04:15 General appearance: Present: no acute distress, well-nourished - EENT Eyes: Present: PERRL ENT: hearing intact, clear oral mucosa - Neck Neck: Present: supple, normal ROM - Respiratory Respiratory effort: normal Respiratory: bilateral: CTA - Cardiovascular Rhythm: regular Heart Sounds: Absent: rub, click - Extremities Extremities: No edema - Abdominal General gastrointestinal: Present: soft, non-tender, non-distended, normal bowel sounds Female genitourinary: Present: normal - Integumentary Integumentary: Present: clear, warm, dry - Musculoskeletal Musculoskeletal: gait normal, strength equal bilaterally - Psychiatric Psychiatric: appropriate mood/affect, intact judgment & insight - Neurologic Neurologic: CNII-XII intact, moves all extremities - Additional findings Additional findings: Fundus firm, lochia scant, breast and bottle feeding, perineum healing well Plan Activity: no restrictions Diet: regular Follow up with: JOSÉ MIGUEL TOTH MD [Primary Care Provider] - 7 Days (Congratulations! Please call [phone] to schedule a blood pressure check in 1 week. Call the office if you have a headache, changes to your visition or upper abdominal pain.) Prescriptions: Docusate Sodium [Colace] 100 mg PO BID PRN #60 capsule PRN Reason: Constipation labetaloL [Labetalol 200mg TAB] 200 mg PO BID #60 tablet Ibuprofen [Motrin 800 MG tab] 800 mg PO Q8HR PRN #30 tablet PRN Reason: Pain
[2020-11-29 10:10] VITALS: BP 125/83
== END 2020-11-29 12:48 | disposition home or self-care (01) | DRG 806 ==
LOC: TRG 06:29 → APU 06:30 → LD 07:51 → TRG 09:03 → OB 11-28 16:18
PROVIDERS: ADMIT Obstetrics & Gynecology; ATTEND Obstetrics & Gynecology
PROC: 10E0XZZ Delivery of Products of Conception, External Approach (ICD-10-PCS; principal; 2020-11-27)
PROC: 0KQM0ZZ Repair Perineum Muscle, Open Approach (ICD-10-PCS; 2020-11-27)
PROC: 3E0R3BZ Introduction of Anesthetic Agent into Spinal Canal, Percutaneous Approach (ICD-10-PCS; 2020-11-27)
PROC: 00HU33Z Insertion of Infusion Device into Spinal Canal, Percutaneous Approach (ICD-10-PCS; 2020-11-27)
DX: O14.94 Unspecified pre-eclampsia, complicating childbirth (principal); D62 Acute posthemorrhagic anemia; Z37.0 Single live birth; O77.0 Labor and delivery complicated by meconium in amniotic fluid; O70.1 Second degree perineal laceration during delivery; E03.9 Hypothyroidism, unspecified; O99.284 Endocrine, nutritional and metabolic diseases complicating childbirth; Z3A.40 40 weeks gestation of pregnancy; Z79.899 Other long term (current) drug therapy; Z20.822 Contact with and (suspected) exposure to COVID-19; O90.81 Anemia of the puerperium
CPT/HCPCS: 36415; 59025; 81001; 82565; 83615; 83735; 84450; 84460; 84550; 85014; 85018; 85027; 86592; 86850; 86900; 86901; 87086; 96360; 99211; G0378; G0463; J0360; J2405; J2590; J3010; J3475; J7120; U0003